=== PATIENT | male | born 1960 | race Caucasian/White ===

== ENCOUNTER 2016-12-13 07:01 | Emergency (ER) | payer MEDICAID ==
[~2016-12-13] VITALS: Ht 182.9 cm; Wt 72.6 kg
[2016-12-13 07:05] VITALS: BP 112/71
== END 2016-12-13 07:40 | disposition home or self-care (01) ==
LOC: ER 07:01
DX: H20.9 Unspecified iridocyclitis (principal); Z98.890 Other specified postprocedural states; Z88.0 Allergy status to penicillin
CPT/HCPCS: 99283; A4606; Z7610